=== PATIENT | male | born 1990 | race Caucasian/White ===

== ENCOUNTER 2024-09-17 15:25 | Observation (INO) ==
--- NOTE | 2024-09-17 15:52 | Emergency Department Note ---
HPI - Abdominal Pain General Chief Complaint: Abdominal Pain Stated Complaint: left side abd pain x 3months, chills, weakness Time Seen by Provider: 09/17/24 15:28 Source: patient Mode of arrival: walk-in Limitations: no limitations History of Present Illness HPI narrative: 34 Y/O Male presents to the ED with c/o left sided flank pain with dark, bloody urine for the last 3 months. Today he states the pain was so sharp he was unable to stand. Reports he is unsure if he had a fever. [place] chills. Denies any significant PMHX. Last BM was yesterday. Denies abnormal. Current everyday smoker. MD elicited complaint: abdominal pain and flank pain Pertinent past history: none Pain Consistency: constant Location: L flank Severity: moderate-severe Quality: cramping, aching and burning Radiation: none Migration to: no migration Exacerbating factors: nothing Relieving factors: nothing Related Data Allergies Allergy/AdvReac Type Severity Reaction Status Date / Time No Known Drug Allergies Allergy Verified 09/17/24 15:57 Review of Systems Status of ROS 10 or more systems reviewed and unremark able except as noted in history and below Constitutional Reports: fever; Denies: chills, change in weight, fatigue or malaise Eyes Denies: change in vision, blurry vision, blind spots, light sensitivity, floaters or seeing flashes Ears, nose, mouth, and throat Denies: throat pain or neck pain Cardiovascular Denies: chest pain, palpitations, edema, swelling of feet/ankles, lightheadedness, shortness of breath with exertion, shortness of breath when lying down or leg pain with exertion Respiratory Denies: shortness of breath, cough or wheezing Gastrointestinal Reports: abdominal pain, nausea and vomiting; Denies: diarrhea, change in bowel habits or painful bowel movements Genitourinary Reports: painful urination and blood in urine; Denies: urinary frequency, urinary urgency or difficulty urinating Integumentary/Breast Denies: rash or itching Neurological Denies: headache or numbness in extremities PFSH PFSH Social History Smoking status: current every day smoker Within the past year, how often did you have a drink containing alcohol: never Within the past year, how often did you have six or more drinks on one occasion: never Score interpretation: A score less than 4 is consistent with normal alcohol consumption. What is your current living situation: I presently have a place to live Exam Constitutional: average body habitus, no limitations and alert Vital Signs - 24 hr 09/17/24 15:54 Temperature 97.8 F Pulse Rate 72 Respiratory Rate 20 Blood Pressure 155/88 Pulse Oximetry 94 L Oxygen Delivery Me thod Room Air HENMT: normocephalic Eyes: PERRL, EOMs intact bilaterally and conjunctivae normal Respiratory: breath sounds equal bilaterally, normal respiratory effort, clear to auscultation bilaterally, no wheezes, no rales, no retractions and no use of accessory muscles Cardiovascular: normal heart rate noted, regular rhythm noted and peripheral pulses 2+ throughout Gastrointestinal: Left flank tenderness with palpation. 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 UA positive for UTI Patient given 2 mg of Morphine, 30 mg of Toradol 1 gm Rocephin IV piggyback 8 mg of Zofran given Patient reports the pain is still a 7 out of 10. 165 Pagekailyn Antonio RN, with [facility] for admission [id number] Marisela CARABALLO returned paged, OK to admit for pain control 165 Dr. Messer called. He accepts admission. Reevaluation(s) Reevaluation #1: Patient would like to be admitted for pain control. Time: 16:58 Vital Signs Vital signs: Vital Signs Temperature 97.8 F 09/17/24 15:54 Pulse Rate 72 09/17/24 15:54 Respiratory Rate 20 09/17/24 15:54 Blood Pressure 155/88 09/17/24 15:54 Pulse Oximetry 94 L 09/17/24 15:54 Oxygen Delivery Method Room Air 09/17/24 15:54 Temperature 97.8 F 09/17/24 15:54 Pulse Rate 72 09/17/24 15:54 Respiratory Rate 20 09/17/24 15:54 Blood Pressure 155/88 09/17/24 15:54 Pulse Oximetry 94 L 09/17/24 15:54 Oxygen Delivery Method Room Air 09/17/24 15:54 MDM - Abdominal Pain Differential Diagnosis Differential diagnosis: Likely abdominal pain and calculus of kidney Lab Data Attestation: I reviewed the patient's lab results. Labs: Lab Results 09/17/24 Range/Units 15:58 WBC 8.4 (3.7-9.6) K/uL RBC 5.9 H (4.40-5.80) M/uL Hgb 18.3 H (14.0-17.4) gm/dL Hct 52.4 H (41.3-50.1) % MCV 88.5 (81.9-96.5) fl MCH 30.8 (27.6-33.7) pg MCHC 34.9 (33.0-35.7) g/dl RDW 13.1 (11.0-14.8) % Plt Count 327 (142-355) K/uL MPV 7.7 (6.0-10.4) fl Gran % 65.1 (49.1-73.1) % Lymph % (Auto) 23.4 (17.6-39.05) % [place] % (Auto) 10.7 (4.5-10.7) % Eos % (Auto) 0.3 (0.0-4.0) % Baso % (Auto) 0.5 (0.0-1.3) Lymph # (Auto) 2.0 (0.8-2.9) [place] # (Auto) 0.9 H (0.2-0.8) Eos # (Auto) 0.0 (0.0-0.3) Baso # (Auto) 0.0 (0.0-0.1) Absolute Gran (auto) 5.4 (2.0-6.2) Sodium 131 L (136-145) mmol/L Potassium 3.5 L (3.6-5.2) mmol/L Chloride 93.0 L (98-107) mmol/L Carbon Dioxide 26 (21-32) mmol/L Anion Gap 12.0 (4-14) mEq/L BUN 11 (7-18) mg/dL Creatinine 1.0 (0.6-1.3) mg/dL Estimated GFR 100.0 (>59.9) Glucose 150 H (70-110) mg/dL Calcium 8.6 (8.5-10.1) mg/dL Lipase 25.0 (16.0-77.0) U/L Urine Color Dark yellow (STRAW/YELL.) Urine Appearance Hazy (CLEAR) Ur Specific [place] 1.020 (1.001-1.035) Urine Protein Negative (NEGATIVE) Urine Glucose (UA) 4+ (NORMAL) Urine Ketones Small (NEGATIVE) Urine Occult Blood 4+ (NEG - TRACE) Urine Nitrite Negative (NEGATIVE) Urine Bilirubin Negative (NEGATIVE) Urine Urobilinogen Normal (NORMAL) Ur Leukocyte Esterase Negative (NEGATIVE) Urine RBC 25 - 50 (0 - 5) Urine WBC 2 - 5 ( 0 - 5) Ur Epithelial Cells Few (Few/HPF) Amorphous Sediment Few (Negative) Urine Bacteria Negative (Negative) Urine Mucus Negative (Negative) Urine Trichomonas Negative (Negative) Urine Yeast Negative (Negative) Fluid pH 6.0 (5 - 9) Urine Opiates Screen Neg. (NEGATIVE) Urine Methadone Screen Neg. (NEGATIVE) Barbiturate Screen Neg. (NEGATIVE) Ur Phencyclidine Scrn Neg. (NEGATIVE) Amphetamines Screen Pos. (NEGATIVE) U Benzodiazepines Scrn Neg. (NEGATIVE) Urine Cocaine Screen Neg. (NEGATIVE) U Marijuana (THC) Screen Pos. (NEGATIVE) Imaging Data Imaging ordered: CT scan - abdomen Radiologist's impression: EXAM: CT ABDOMEN PELVIS WO CON HISTORY: kidney stonekidney stone; COMPARISON: None. TECHNIQUE: Nonenhanced spiral CT imaging was performed through the abdomen and pelvis and axial, coronal, and sagittal CT images were generated. FINDINGS: The lung bases are clear without effusion. Heart size is normal. The liver is normal. The gallbladder, pancreas, spleen, adrenal glands are normal. Both kidneys are normal in size. There is a punctate nonobstructing stone in the right kidney. There is a 1.8 cm nonobstructing stone in the left renal pelvis. There is no ureteral stone. There is urinary bladder wall thickening. Prostate is normal. The stomach is normal. There is no abnormal dilation of the small bowel. There is no evidence for appendicitis. There are reactive sized mesenteric lymph nodes. The large bowel loops are normal. IMPRESSION: 1.8 cm nonobstructing stone in the left renal pelvis. Punctate nonobstructing stones in the right kidney. THIS IS AN ELECTRONICALLY VERIFIED FINAL REPORT 09/17/2024 4:16 PM - Electronically signed by Josue Townsend MD Discharge Plan Discharge Patient Disposition: Admitted As Observation Clinical Impression: Intractable abdominal pain, Kidney stone on left side Time of Disposition: 16:48
[2024-09-17] MEDS: ONDANSETRON HCL/PF 4 MG/2 ML VIAL IVP ONE ×2 (15:56→18:11)
[2024-09-17] MEDS: KETOROLAC 30 MG/ML INJ VIAL IVP ONE (15:56)
[2024-09-17] MEDS: 0.9 % SODIUM CHLORIDE 1000 ML 1,000 ML IV ONE (15:59)
[2024-09-17 16:01] LABS: Granulocytes#(Absolute)- Auto 5.4 (2.0-6.2); Mean Corpuscular Volume 88.5 fl (81.9-96.5); Monocytes #(Absolute)- Auto 0.9 (0.2-0.8)
[2024-09-17 16:03] LABS: Basophils%(Percent) Auto 0.5 (0.0-1.3); Eosinophils%(Percent) Auto 0.3 % (0.0-4.0); Granulocytes % - Auto 65.1 % (49.1-73.1); Hematocrit 52.4 % (41.3-50.1); Monocytes %(Percent)- Auto 10.7 % (4.5-10.7); Platelet Count 327 K/uL (142-355); White Blood Count 8.4 K/uL (3.7-9.6)
[2024-09-17 16:10] LABS: Potassium 3.5 mmol/L (3.6-5.2)
[2024-09-17 16:15] LABS: Amphetamine Screen Urine POS. (NEGATIVE); Cannabinoid Screen Urine POS. (NEGATIVE); Cocaine Screen Urine NEG. (NEGATIVE); Methadone Screen Urine NEG. (NEGATIVE); Opiate Screen Urine NEG. (NEGATIVE)
[2024-09-17 16:19] LABS: Urine Appearance HAZY (CLEAR); Urine Color DARK YELLOW (STRAW/YELL.)
[2024-09-17 16:20] LABS: Urine Blood 4+ (NEG - TRACE); Urine Urobilinogen Normal (NORMAL)
[2024-09-17 16:44] LABS: Urine Amorphous Sediment Few (Negative); Urine Yeast Negative (Negative)
[2024-09-17] MEDS ORDERED: ONDANSETRON HCL/PF 4 MG/2 ML VIAL IVP PRN (16:54)
[2024-09-17] MEDS ORDERED: TAMSULOSIN HCL 0.4 MG CAPSULE PO ONE (18:08)
[2024-09-17] MEDS ORDERED: ONDANSETRON HCL/PF 4 MG/2 ML VIAL ONE (18:08)
[2024-09-17] MEDS ORDERED: MORPHINE SULFATE 2 MG/ML CARTRIDGE IV ONE (18:08)
[2024-09-17] MEDS: TAMSULOSIN HCL 0.4 MG CAPSULE PO SCH (18:10)
[2024-09-17] MEDS: MORPHINE SULFATE 2 MG/ML CARTRIDGE IV ONE (18:11)
[2024-09-17] MEDS: KETOROLAC 30 MG/ML INJ VIAL IVP PRN (21:10)
[2024-09-18] MEDS: NICOTINE 21 MG/HR .TD24 TD SCH (04:21)
[2024-09-18 05:15] LABS: Basophils%(Percent) Auto 0.8 (0.0-1.3); Eosinophils#(Absolute)Auto 0.1 (0.0-0.3); Eosinophils%(Percent) Auto 2.4 % (0.0-4.0); Granulocytes % - Auto 56.1 % (49.1-73.1); Granulocytes#(Absolute)- Auto 3.2 (2.0-6.2); Mean Corpuscular Volume 87.6 fl (81.9-96.5); Monocytes #(Absolute)- Auto 0.7 (0.2-0.8); Monocytes %(Percent)- Auto 11.3 % (4.5-10.7); Platelet Count 258 K/uL (142-355); White Blood Count 5.8 K/uL (3.7-9.6)
[2024-09-18 05:30] LABS: Potassium 3.7 mmol/L (3.6-5.2)
[2024-09-18] MEDS ORDERED: MORPHINE SULFATE 2 MG/ML CARTRIDGE IV PRN (09:21)
[2024-09-18] MEDS: KETOROLAC 30 MG/ML INJ VIAL IVP SCH (10:12)
--- NOTE | 2024-09-18 10:35 | History & Physical Report ---
H&P: HPI History of Present Illness Chief complaint: Intractable Pain Narrative: 34 Y/O Male presents to the ED with c/o left sided flank pain with dark, bloody urine for the last 3 months. Today he states the pain was so sharp he was unable to stand. Reports he is unsure if he had a fever. [place] chills. Denies any significant PMHX. Last BM was yesterday. Denies abnormal. Current everyday smoker. Admitted to med/surg for further observation and treatment. Day one of hospital stay, patient complains of pain in his left lower quadrant of back/side. Renal US has been ordered. Patient states he has had "dark-bloody" urine for three months. CT of Abdomen/[place] W/O Contrast reflects the following: "1.8 cm nonobstructing stone in the left renal pelvis. Punctate nonobstructing stones in the right kidney." Review of Systems Status of ROS 10 or more systems reviewed and unremark able except as noted in history and below Constitutional Reports: fever; Denies: chills, change in weight, fatigue or malaise Eyes Denies: change in vision, blurry vision, blind spots, light sensitivity, floaters or seeing flashes Ears, nose, mouth, and throat Denies: throat pain or neck pain Cardiovascular Denies: chest pain, palpitations, edema, swelling of feet/ankles, lightheadedness, shortness of breath with exertion, shortness of breath when lying down or leg pain with exertion Respiratory Denies: shortness of breath, cough, wheezing or stridor Gastrointestinal Reports: abdominal pain, nausea and vomiting; Denies: diarrhea, change in bowel habits or painful bowel movements Genitourinary Reports: painful urination and blood in urine; Denies: urinary frequency, urinary urgency or difficulty urinating Musculoskeletal Denies: neck pain Integumentary/Breast Denies: rash, itching, redness, skin pain or skin tenderness Neurological Denies: headache, numbness in extremities, weakness in extremities, lack of coordination, dizziness, vertigo or confusion Psychiatric Reports: anxiety, mood swings, panic attacks, paranoia and difficulty concentrating; Denies: change in sleep pattern, hopelessness, loss of interest, irritability, memory loss, visual hallucinations, suicidal ideation or homicidal ideation Endocrine Denies: excessive urination, excessive thirst, fatigue, cold intolerance or excessive sweating Hematologic/Lymphatic Denies: easy bruising, easy bleeding or enlarged lymph nodes Allergic/Immunologic Denies: wheezing PFSH PFSH Medical History (Updated 09/18/24 @ 12:38 by Margarita Marie DO) Bilateral kidney stones Anxiety Methamphetamine abuse Marijuana abuse Surgical History (Updated 09/18/24 @ 12:38 by Margarita Marie DO) Hx of craniotomy Social History Smoking status: current every day smoker Within the past year, how often did you have a drink containing alcohol: never Within the past year, how often did you have six or more drinks on one occasion: never Score interpretation: A score less than 4 is consistent with normal alcohol consumption. What is your current living situation: I presently have a place to live Problems where you live: no known problems Highest level of school completed/degree received: high school Gender Identity: male Meds Home Medications and Allergies Allergies Allergy/AdvReac Type Severity Reaction Status Date / Time No Known Drug Allergies Allergy Verified 09/17/24 15:57 Exam Exam: Patient resting in low paz's position upon entering room for exam. Constitutional: abnormal general appearance (disheveled), (chronically ill) and (appears older than stated age), distress noted (mild), abnormal body habitus (cachectic), limitations noted (physical limitations) (due to pain) and alert Vital Signs - 24 hr 09/17/24 15:54 09/17/24 16:30 09/17/24 17:00 Temperature 97.8 F Pulse Rate 72 71 67 Pulse Rate [Left B rachial] Respiratory Rate 20 20 20 Blood Pressure 155/88 157/94 130/89 Blood Pressure [Le ft Arm] Pulse Oximetry 94 L 98 98 Oxygen Delivery Me thod Room Air Room Air Room Air 09/17/24 17:30 09/17/24 18:30 09/17/24 19:44 Temperature Pulse Rate 68 70 70 Pulse Rate [Left B rachial] Respiratory Rate 20 20 20 Blood Pressure 145/95 117/80 117/80 Blood Pressure [Le ft Arm] Pulse Oximetry 98 95 95 Oxygen Delivery Me thod Room Air Room Air 09/17/24 20:05 09/17/24 20:05 09/18/24 00:05 Temperature 97.6 F 98.2 F Pulse Rate Pulse Rate [Left B rachial] 68 72 Respiratory Rate 18 16 Blood Pressure Blood Pressure [Le ft Arm] 131/72 112/78 Pulse Oximetry 98 98 Oxygen Delivery Me thod Room Air Room Air Room Air 09/18/24 04:00 09/18/24 07:50 Temperature 97.5 F L 98.2 F Pulse Rate Pulse Rate [Left B rachial] 62 68 Respiratory Rate 18 19 Blood Pressure Blood Pressure [Le ft Arm] 118/82 121/75 Pulse Oximetry 97 98 Oxygen Delivery Ok thod Room Air Room Air HENMT: normocephalic, head/scalp atraumatic, hearing grossly normal bilaterally, external ears normal, external nose normal and dentition abnormal (missing teeth) Eyes: PERRL, EOMs intact bilaterally, conjunctivae normal and periorbital findings normal Neck/C-Spine: visual inspection normal, trachea midline, cervical spine nontender, cervical full ROM noted and supple Lymph: no lymphadenopathy noted and no lymphedema noted Chest: inspection of chest normal and palpation of chest normal Respiratory: breath sounds equal bilaterally, normal respiratory effort, clear to auscultation bilaterally, no wheezes, no rales, no retractions and no use of accessory muscles Cardiovascular: normal heart rate noted, regular rhythm noted, no murmur and peripheral pulses 2+ throughout Gastrointestinal: abdomen normal to inspection, abdomen soft to palpation, tender to palpation (Left flank tenderness) (moderate), nondistended and normoactive bowel sounds Genitourinary: no CVA tenderness and bladder normal to palpation Back/Pelvis: spine normal to inspection, no thoracic spine tenderness, no lumbar spine tenderness, thoracic spine ROM normal and lumbar spine ROM normal Extremities: normal to inspection, no tenderness, full ROM and no deformity 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: research food technologist II-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, gait normal, speech normal and coordination normal Psychiatry: oriented x3, thought process normal, cooperative and affect normal Skin: skin color normal and skin turgor normal Assessment and Plan Assessment and Plan (1) Bilateral kidney stones: Code(s): N20.0 - Calculus of kidney (2) Intractable abdominal pain: Code(s): R10.9 - Unspecified abdominal pain (3) Hyponatremia: Code(s): E87.1 - Hypo-osmolality and hyponatremia (4) Marijuana abuse: Code(s): F12.10 - Cannabis abuse, uncomplicated (5) Nicotine dependence: Qualifiers: Nicotine product type: cigarettes Substance use status: unspecified nicotine-induced disorder Qualified Code(s): F17.219 - Nicotine dependence, cigarettes, with unspecified nicotine-induced disorders Code(s): F17.200 - Nicotine dependence, unspecified, uncomplicated (6) Methamphetamine abuse: Code(s): F15.10 - Other stimulant abuse, uncomplicated (7) Anxiety: Code(s): F41.9 - Anxiety disorder, unspecified Plan Sodium Chloride 1,000 mls Bolus Sodium Chloride 1,000 mls @ 150 mls/hr IV CONT Nicotine 1 each TD DAILY Ketorolac Tromethamine 30 mg IVP Q6H Pantoprazole Sodium 40 mg PO BID Tamsulosin Hcl 0.4 mg PO Q12H Ondansetron Hcl 4 mg IVP Q6H PRN Morphine Sulfate 2 mg IV Q4H PRN RACHAEL Renal US Results Labs Labs: CBC WBC 5.8 K/uL (3.7-9.6) 09/18/24 04:40 RBC 5.1 M/uL (4.40-5.80) 09/18/24 04:40 Hgb 15.5 gm/dL (14.0-17.4) 09/18/24 04:40 Hct 45.0 % (41.3-50.1) 09/18/24 04:40 MCV 87.6 fl (81.9-96.5) 09/18/24 04:40 MCH 30.2 pg (27.6-33.7) 09/18/24 04:40 MCHC 34.5 g/dl (33.0-35.7) 09/18/24 04:40 RDW 12.9 % (11.0-14.8) 09/18/24 04:40 Plt Count 258 K/uL (142-355) 09/18/24 04:40 MPV 7.8 fl (6.0-10.4) 09/18/24 04:40 Gran % 56.1 % (49.1-73.1) 09/18/24 04:40 Lymph % (Auto) 29.4 % (17.6-39.05) 09/18/24 04:40 [place] % (Auto) 11.3 % (4.5-10.7) H 09/18/24 04:40 Eos % (Auto) 2.4 % (0.0-4.0) 09/18/24 04:40 Baso % (Auto) 0.8 (0.0-1.3) 09/18/24 04:40 Lymph # (Auto) 1.7 (0.8-2.9) 09/18/24 04:40 [place] # (Auto) 0.7 (0.2-0.8) 09/18/24 04:40 Eos # (Auto) 0.1 (0.0-0.3) 09/18/24 04:40 Baso # (Auto) 0.0 (0.0-0.1) 09/18/24 04:40 Absolute Gran (auto) 3.2 (2.0-6.2) 09/18/24 04:40 BMP Sodium 133 mmol/L (136-145) L 09/18/24 04:40 Potassium 3.7 mmol/L (3.6-5.2) 09/18/24 04:40 Chloride 99.0 mmol/L (98-107) 09/18/24 04:40 Carbon Dioxide 29 mmol/L (21-32) 09/18/24 04:40 Anion Gap 5.0 mEq/L (4-14) 09/18/24 04:40 BUN 8 mg/dL (7-18) 09/18/24 04:40 Creatinine 0.7 mg/dL (0.6-1.3) 09/18/24 04:40 Estimated GFR 122.5 (>59.9) 09/18/24 04:40 Glucose 97 mg/dL (70-110) 09/18/24 04:40 Calcium 8.2 mg/dL (8.5-10.1) L 09/18/24 04:40 Urine Urine Color Dark yellow (STRAW/YELL.) 09/17/24 15:58 Urine Appearance Hazy (CLEAR) 09/17/24 15:58 Ur Specific [place] 1.020 (1.001-1.035) 09/17/24 15:58 Urine Protein Negative (NEGATIVE) 09/17/24 15:58 Urine Glucose (UA) 4+ (NORMAL) 09/17/24 15:58 Urine Ketones Small (NEGATIVE) 01/26/25 15:58 Urine Occult Blood 4+ (NEG - TRACE) 09/17/24 15:58 Urine Nitrite Negative (NEGATIVE) 09/17/24 15:58 Urine Bilirubin Negative (NEGATIVE) 09/17/24 15:58 Urine Urobilinogen Normal (NORMAL) 09/17/24 15:58 Ur Leukocyte Esterase Negative (NEGATIVE) 09/17/24 15:58 Imaging Imaging ordered: CT scan - abdomen Radiologist's impression: CT ABDOMEN PELVIS WO CON Date of Service: 09/17/24 HISTORY: kidney stonekidney stone; COMPARISON: None. TECHNIQUE: Nonenhanced spiral CT imaging was performed through the abdomen and pelvis and axial, coronal, and sagittal CT images were generated. FINDINGS: The lung bases are clear without effusion. Heart size is normal. The liver is normal. The gallbladder, pancreas, spleen, adrenal glands are normal. Both kidneys are normal in size. There is a punctate nonobstructing stone in the right kidney. There is a 1.8 cm nonobstructing stone in the left renal pelvis. There is no ureteral stone. There is urinary bladder wall thickening. Prostate is normal. The stomach is normal. There is no abnormal dilation of the small bowel. There is no evidence for appendicitis. There are reactive sized mesenteric lymph nodes. The large bowel loops are normal. IMPRESSION: 1.8 cm nonobstructing stone in the left renal pelvis. Punctate nonobstructing stones in the right kidney.
[2024-09-18] MEDS: 0.9 % SODIUM CHLORIDE 1000 ML 1,000 ML IV SCH ×2 (12:09→13:19)
[2024-09-18] MEDS: PANTOPRAZOLE SODIUM 40 MG TABLET.DR PO SCH (20:09)
[2024-09-18] MEDS: TAMSULOSIN HCL 0.4 MG CAPSULE PO SCH (20:09)
[2024-09-19 03:27] VITALS: RESP 18; TEMP 98.2
[2024-09-19 05:35] LABS: Basophils%(Percent) Auto 0.7 (0.0-1.3); Eosinophils#(Absolute)Auto 0.1 (0.0-0.3); Eosinophils%(Percent) Auto 1.9 % (0.0-4.0); Granulocytes % - Auto 63.1 % (49.1-73.1); Hematocrit 42.2 % (41.3-50.1); Mean Corpuscular Volume 87.1 fl (81.9-96.5); Monocytes #(Absolute)- Auto 0.6 (0.2-0.8); Monocytes %(Percent)- Auto 9.7 % (4.5-10.7); Platelet Count 259 K/uL (142-355); White Blood Count 6.4 K/uL (3.7-9.6)
[2024-09-19 05:55] LABS: Potassium 3.8 mmol/L (3.6-5.2)
[2024-09-19 08:05] VITALS: BP 117/78; PULSE 64
--- NOTE | 2024-09-19 10:55 | Discharge Summary ---
DS: Providers Provider Date of admission: 09/17/24 16:54 Primary care physician: Anil Dickens NP Admitting clinician: Ailyn Ernst Attending physician on admission: Margarita Marie Attending physician on discharge: Margarita Marie Discharging clinician: Margarita Marie Anticipated date of discharge: 09/19/24 DS: Diagnosis Discharge Diagnosis (1) Bilateral kidney stones: (2) Intractable abdominal pain: (3) Hyponatremia: (4) Marijuana abuse: (5) Nicotine dependence: Qualifiers: Nicotine product type: cigarettes Substance use status: unspecified nicotine-induced disorder Qualified Code(s): F17.219 - Nicotine dependence, cigarettes, with unspecified nicotine-induced disorders (6) Methamphetamine abuse: (7) Anxiety: Plan Discharge home for self care. DS: Summary Hospital Course Hospital Course: 34 Y/O Male presents to the ED with c/o left sided flank pain with dark, bloody urine for the last 3 months. Today he states the pain was so sharp he was unable to stand. Reports he is unsure if he had a fever. [place] chills. Denies any significant PMHX. Last BM was yesterday. Denies abnormal. Current everyday smoker. Admitted to med/surg for further observation and treatment. Day one of hospital stay, patient complains of pain in his left lower quadrant of back/side. Renal US has been ordered. Patient states he has had "dark-bloody" urine for three months. CT of Abdomen/Pelvis W/O Contrast reflects the following: "1.8 cm nonobstructing stone in the left renal pelvis. Punctate nonobstructing stones in the right kidney." Day two of hospital stay, patients pain has resolved and stone has passed. Patient still has small nonobstructive stones in right kidney. Patient is ready to discharge home for self care. Post hospital follow up appointment is recommended in 5-7 days of discharge. Provider recommends patient follow up with a urologist as an outpatient. Status at Discharge Functional status at discharge: independent ambulation Overall status at discharge: patient is back to baseline Time Spent with Patient Time attestation: Total time spent providing and/or coordinating discharge services: Time spent: greater than 30 minutes Exam Exam: Patient resting in low paz's position upon entering room for exam. Constitutional: abnormal general appearance (disheveled), (chronically ill) and (appears older than stated age), no apparent distress, abnormal body habitus (cachectic), no limitations and alert Vital Signs - 24 hr 09/18/24 12:00 09/18/24 16:00 09/18/24 19:37 Temperature 97.5 F L 98.9 F 98.5 F Pulse Rate [Left B rachial] 86 68 67 Respiratory Rate 20 19 16 Blood Pressure [Le ft Arm] 104/73 119/77 126/75 Pulse Oximetry 99 99 99 Oxygen Delivery Me thod Room Air Room Air Room Air 09/18/24 23:23 09/19/24 03:27 09/19/24 08:00 Temperature 99.0 F 98.2 F 98.2 F Pulse Rate [Left B rachial] 67 57 L 64 Respiratory Rate 19 18 18 Blood Pressure [Le ft Arm] 126/85 143/76 117/78 Pulse Oximetry 99 98 99 Oxygen Delivery Me thod Room Air Room Air Room Air HENMT: normocephalic, head/scalp atraumatic, hearing grossly normal bilaterally, external ears normal, external nose normal and dentition abnormal (missing teeth) Eyes: PERRL, EOMs intact bilaterally, conjunctivae normal and periorbital findings normal Neck/C-Spine: visual inspection normal, trachea midline, cervical spine nontender, cervical full ROM noted and supple Lymph: no lymphadenopathy noted and no lymphedema noted Chest: inspection of chest normal and palpation of chest normal Respiratory: breath sounds equal bilaterally, normal respiratory effort, clear to auscultation bilaterally, no wheezes, no rales, no retractions and no use of accessory muscles Cardiovascular: normal heart rate noted, regular rhythm noted, no murmur and peripheral pulses 2+ throughout Gastrointestinal: abdomen normal to inspection, abdomen soft to palpation, nondistended and normoactive bowel sounds Genitourinary: no CVA tenderness and bladder normal to palpation Back/Pelvis: spine normal to inspection, no thoracic spine tenderness, no lumbar spine tenderness, thoracic spine ROM normal and lumbar spine ROM normal Extremities: normal to inspection, no tenderness, full ROM and no deformity Neurology: baker bread II-XII intact, gait normal, speech normal and coordination normal Psychiatry: oriented x3, thought process normal, cooperative and affect normal Skin: skin color normal and skin turgor normal DS: Data Data Completed and Pending Labs on day of discharge: Labs from last 24 hours 09/19/24 05:00 WBC 6.4 RBC 4.9 Hgb 14.8 Hct 42.2 MCV 87.1 MCH 30.6 MCHC 35.1 RDW 12.8 Plt Count 259 MPV 7.6 Gran % 63.1 Lymph % (Auto) 24.6 Mcminn % (Auto) 9.7 Eos % (Auto) 1.9 Baso % (Auto) 0.7 Lymph # (Auto) 1.6 Mcminn # (Auto) 0.6 Eos # (Auto) 0.1 Baso # (Auto) 0.0 Absolute Gran (auto) 4.0 Sodium 136 Potassium 3.8 Chloride 103.0 Carbon Dioxide 29 Anion Gap 4.0 BUN 6 L Creatinine 0.7 Estimated GFR 122.5 Glucose 83 Calcium 7.9 L Phosphorus 2.2 L Magnesium 1.[address] scan - abdomen: Radiologist's impression: CT ABDOMEN PELVIS WO CON Date of Service: 09/17/24 HISTORY: kidney stonekidney stone; COMPARISON: None. TECHNIQUE: Nonenhanced spiral CT imaging was performed through the abdomen and pelvis and axial, coronal, and sagittal CT images were generated. FINDINGS: The lung bases are clear without effusion. Heart size is normal. The liver is normal. The gallbladder, pancreas, spleen, adrenal glands are normal. Both kidneys are normal in size. There is a punctate nonobstructing stone in the right kidney. There is a 1.8 cm nonobstructing stone in the left renal pelvis. There is no ureteral stone. There is urinary bladder wall thickening. Prostate is normal. The stomach is normal. There is no abnormal dilation of the small bowel. There is no evidence for appendicitis. There are reactive sized mesenteric lymph nodes. The large bowel loops are normal. IMPRESSION: 1.8 cm nonobstructing stone in the left renal pelvis. Punctate nonobstructing stones in the right kidney. Renal US: Radiologist's impression: US RENAL BI Date of Service: 09/18/24 HISTORY: CVA pain and renal stone noted on CTCVA pain and renal stone noted on CT; COMPARISON: Abdominopelvic CT September 17, 2024 TECHNIQUE: Multiple vergara scale and color flow Doppler images of the kidneys were obtained. The region of the urinary bladder was evaluated as well. FINDINGS: Both kidneys demonstrate normal echogenicity without cortical thinning, hydronephrosis or nephrolithiasis. The right kidney measures 10.8 x 4.5 x 7.1 cm cortex 1.5. The left kidney measures 11.7 x 5.8 x 5.6 cm cortex 1.6 cm. There is a 1.7 cm left renal pelvic stone without hydronephrosis. No solid or cystic renal lesions are demonstrated. There is vascular flow in both kidneys on color Doppler interrogation. The region of the urinary bladder is grossly unremarkable. IMPRESSION: Unremarkable sonographic evaluation of the kidneys. Left renal pelvic 1.7 cm stone without hydronephrosis. Discharge Plan Discharge Disposition: Home, Self-Care Condition: Improved Discharge Medications: New ketorolac 10 mg tablet 10 mg PO Q8H PRN (Reason: pain) Qty: 10 0RF Rx Instructions: maximum total duration of 5 days from all oral, intranasal, or parenteral formulations tamsulosin [Flomax] 0.4 mg capsule 0.4 mg PO 2100 Qty: 30 0RF Discharge Orders: Discharge Order (Routine); Ordered 09/19/24 Ordered By: Margarita Marie Activity: increase activity as tolerated Diet: advance to your usual diet Diet Detail: increae water and electrolyte drinks in diet Interventions: Discharge Assessment Last Done: 09/19/24 10:14 MED/SURG & ICU Observation Charge Sheet Last Done: 09/19/24 10:18 Patient Instructions: Kidney Stones (DC) Activity Restrictions/Additional Instructions: patient denies need for rehab for drugs and states he is doing ok with anxiety at home follow up PCP in he next week and urology as an outpatient continue to strain urine until the stone passes avoid sodas and tea increase water and electrolyte drinks in his daily activities Forms: Portal/Health Info Access Inst Follow-Ups: Anil Dickens NP [Primary Care Provider] -
== END 2024-09-19 10:50 | disposition home or self-care (01) ==
LOC: MS 15:25 → ED 15:25 → MS 19:50
PROVIDERS: ADMIT Family Medicine; ATTEND Family Medicine